=== PATIENT | male | born 1990 | race Two or more races ===

== ENCOUNTER 2019-04-18 09:24 | Emergency (ER) | payer OTHER ==
--- NOTE | 2019-04-18 09:59 | ED ---
Lower Extremity - HPI Summary HPI Summary: Patient is a 28-year-old male who presents emergency department for right knee and neck injury that occurred today. 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 Denies head injury or loss of consciousness. Able to ambulate with mild pain. Symptoms are mild in severity. Movement makes symptoms worse. Rest makes symptoms better. No significant past medical history. - History of Current Complaint Chief Complaint: EDFall Stated Complaint: INJURED ON DUTY PER PT Time Seen by Provider: 04/18/19 09:46 Hx Obtained From: Patient Pain Intensity: 7 - Allergies/Home Medications Allergies/Adverse Reactions: Allergies Allergy/AdvReac Type Severity Reaction Status Date / Time No Known Allergies Allergy Verified 04/18/19 09:29 PMH/Surg Hx/FS Hx/Imm Hx Previously Healthy: Yes Endocrine/Hematology History: Denies: Hx Diabetes Cardiovascular History: Denies: Hx Congestive Heart Failure, Hx Hypertension, Hx Pacemaker/ICD History: Denies: Hx Renal Disease Sensory History: Denies: Hx Hearing Aid Psychiatric History: Denies: Hx Panic Disorder - Surgical History Surgery Procedure, Year, and Place: RT SHOULDER Infectious Disease History: No Infectious Disease History: Denies: Traveled Outside the [place] in Last 30 Days - Family History Known Family History: Positive: Unknown, Non-Contributory - Social History Occupation: Employed Full-time Lives: With Family Alcohol Use: None Substance Use Type: Reports: None Smoking Status (MU): Never Smoked Tobacco Review of Systems Positive: Other - Right knee and lateral neck pain Positive: Bruising Neurological: Negative Negative: Headache, Weakness, Paresthesia, Numbness All Other Systems Reviewed And Are Negative: Yes Physical Exam Triage Information Reviewed: Yes Vital Signs On Initial Exam: Initial Vitals Temp Pulse Resp BP Pulse Ox 97.9 F 64 16 146/85 100 04/18/19 09:26 04/18/19 09:26 04/18/19 09:26 04/18/19 09:26 04/18/19 09:26 Vital Signs Reviewed: Yes Appearance: Positive: Well-Appearing - Pt. lying in bed in NAD. Skin: Positive: Warm, Dry Head/Face: Positive: Normal Head/Face Inspection Neck: Positive: Supple, Other: - No midline cervical tenderness. Bilaterally lateral tenderness. Full ROM. Musculoskeletal: Positive: Other - 5/5 strength in bilateral UEs and LEs. Superficial abrasion over right knee with pain medially. No increased laxity. Able to lift leg off of bed. Mild pain with flexion. Good pedal pulse. No proximal or distal pain. Neurological: Positive: Normal, CN Intact II-III Psychiatric: Positive: Affect/Mood Appropriate Procedures - Sedation Patient Received Moderate/Deep Sedation with Procedure: No Diagnostics - Vital Signs Vital Signs Temp Pulse Resp BP Pulse Ox 04/18/19 09:26 97.9 F 64 16 146/85 100 - Laboratory Lab Statement: Any lab studies that have been ordered have been reviewed, and results considered in the medical decision making process. Lower Extremity Course/Dx - Course Course Of Treatment: X-rays negative for acute findings, reading per radiology. Results discussed. Zach wrap placed for comfort. Advised icing right knee and applying heat to neck. Tylenol or Motrin for pain as directed. To follow- up with PCP for recheck if pain persists. Activity as tolerated. Patient understands and agrees with plan. - Diagnoses Differential Diagnosis/HQI/PQRI: Positive: Contusion, Fracture (Closed), Sprain Provider Diagnoses: Knee sprain, Cervical strain Discharge ED - Sign-Out/Discharge Documenting (check all that apply): Patient Departure - Discharge Plan Condition: Good Disposition: HOME Patient Education Materials: Cervical Strain (ED), Knee Sprain (ED) Referrals: Jimmy Hoffman NP [Primary Care Provider] - Additional Instructions: Schedule a follow up appointment with you PCP if pain persist Apply ice to knee and heat to neck Tylenol or Motrin for pain as directed Activity as tolerated Return to ER if symptoms change or worsen - Billing Disposition and Condition Condition: GOOD Disposition: Home
[2019-04-18 11:25] VITALS: BP 142/86
== END 2019-04-18 11:23 | disposition home or self-care (01) ==
LOC: ED 09:24
DX: S83.91XA Sprain of unspecified site of right knee, initial encounter (principal); S16.1XXA Strain of muscle, fascia and tendon at neck level, initial encounter; W18.39XA Other fall on same level, initial encounter; Y93.02 Activity, running; Y92.9 Unspecified place or not applicable; Y99.0 Civilian activity done for income or pay
CPT/HCPCS: 72050; 99282